=== PATIENT | female | born 1985 | race African-American/Black ===

== ENCOUNTER 2017-02-13 06:15 | Emergency (ER) | payer MEDICAID ==
[~2017-02-13] VITALS: Ht 160 cm; Wt 70.0 kg
[~2017-02-13 06:15] MED LIST: CIPR500T4 PO; DICL75 PO; METR-1 PO; Z.0.BCPILL PO; ZOFR4TAB3 PO
[2017-02-13 06:17] VITALS: BP 115/71; PULSE 69; RESP 16; TEMP 98.4; O2SAT 98
[2017-02-13] MEDS ORDERED: PRED15SO SWISH-SWAL (06:38)
--- NOTE | 2017-02-13 06:45 | PD ---
HPI Chief Complaint: Allergic/Adverse Reaction Time Seen by Provider: 06:41 Travel History International Travel<30 days: No Contact w/Intl Traveler<30days: No Traveled to known affect area: No History of Present Illness HPI 31-year-old black female presents to emergency department complains of tenderness and blistering along the edges of her lips and gum over last day or 2. She states that this had started after switching toothpaste. She denies any recent illness. No fever chills. No difficulty swallowing. She denies any new medications. No glossal edema. Denies any history of HSV PFSH Past Medical History Anemia: Yes Diminished Hearing: No Tetanus Vaccination: < 5 Years ?: Not LMP: 01/23/17 : 2 Para: 1 : 1 Past Surgical History Oral Surgery: Yes (partial uppers) Social History Alcohol Use: No Tobacco Use: No Substance Use: No Allergies-Medications (Allergen,Severity, Reaction): Coded Allergies: No Known Allergies (Verified , 02/13/17) Reported Meds & Prescriptions Reported Meds & Active Scripts Active Prednisolone Liq (w/alcohol 5%) (Prednisolone) 15 Mg/5 Ml Soln 15 Mg SWISH-SWAL TID 5 Days Review of Systems Except as stated in HPI: all other systems reviewed are Neg Physical Exam Narrative GENERAL: Well-developed, well-nourished in no acute distress. Nontoxic appearing. HEAD: Normocephalic, atraumatic. EYES: Pupils equal round and reactive. Extraocular motions intact. No scleral icterus. No injection or drainage. ENT: TMs clear without erythema. The external auditory canals clear. Nose: clear . Posterior pharynx is pink and moist. No tonsillar edema or exudate. Uvula midline. Airway patent. Patient has mild gingival erythema with a few scattered ulcerative lesions to the buccal mucosa NECK: Trachea midline.Supple, nontender, moves head freely. No central bony tenderness or spasm. CARDIOVASCULAR: Regular rate and rhythm without murmurs, gallops, or rubs. RESPIRATORY: Clear to auscultation. Breath sounds equal bilaterally. No wheezes , rales, or rhonchi. GASTROINTESTINAL: Abdomen soft, non-tender, nondistended. No hepato-splenomegaly , or palpable masses. No guarding. EXTREMITIES: No clubbing, cyanosis, or edema. No joint tenderness, effusion, or edema noted. BACK: Nontender without deformity or crepitance. No flank tenderness. Data Data Last Documented VS Vital Signs Date Time Temp Pulse Resp B/P Pulse Ox O2 Delivery O2 Flow Rate FiO2 02/13/17 06:17 98.4 69 16 115/71 98 Room Air MDM Medical Decision Making Medical Screen Exam Complete: Yes Emergency Medical Condition: Yes Medical Record Reviewed: Yes Differential Diagnosis Differential diagnoses: HSV, canker sore, reaction to toothpaste Narrative Course Patient appears to be having a reaction to her new toothpaste. She's been advised to back to her original to . She is given prescription for Orapred prednisone swish and swallow. Diagnosis Primary Impression: reaction to toothpaste Patient Instructions: General Instructions Additional Instructions: Rest. Switch back to your old toothpaste. Oral prednisone Benadryl 50 mg every 6 hours as needed. Follow-up with your doctor in 1 week. Return to ER for new problems. Med/Other Pt SpecificInfo: Prescription(s) given Scripts Prednisolone Liq (w/alcohol 5%) 15 Mg/5 Ml Soln15 Mg SWISH-SWAL TID 5 Days Ref 0 Prov:Kalen Jimenez MD 02/13/17 Disposition: 01 DISCHARGE HOME Condition: Stable Buster Naidu Feb 13, 2017 06:45
== END 2017-02-13 07:15 | disposition home or self-care (01) ==
LOC: NEPD 06:15
DX: T78.40XA Allergy, unspecified, initial encounter (principal); D64.9 Anemia, unspecified
CPT/HCPCS: 99283

== ENCOUNTER 2017-05-12 15:43 | Emergency (ER) | payer MEDICAID ==
[~2017-05-12] VITALS: Ht 160 cm; Wt 70.1 kg
[~2017-05-12 15:43] MED LIST changes: -CIPR500T4 PO; -DICL75 PO; -METR-1 PO; +PRED15SO SWISH-SWAL; -Z.0.BCPILL PO; -ZOFR4TAB3 PO
[2017-05-12 15:57] VITALS: BP 125/77; PULSE 92; RESP 18; TEMP 98.8; O2SAT 99
--- NOTE | 2017-05-12 16:22 | PD ---
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 Patient states when vaginal discharge started one week ago, she went to [facility] where she had a pelvic exam and was given azithromycin and ceftriaxone. Patient states her discharge seemed to improve slightly but a few days later she developed left lower pelvic pain. Pain has been worsening. When she wiped after using the bathroom today, she saw a small piece of white, rubber glove. Patient states she is concerned there are other retained foreign bodies. She last had intercourse a few days ago and used a condom. She is not using any other form of control. Denies itching, fever, chills, nausea, vomiting, abdominal pain, flank pain, dysuria, urgency, frequency, or foul odors. No chronic medical conditions or daily medications. [facility] Past Medical History Anemia: Yes Diminished Hearing: No ?: Not LMP: 04/24/2017 : 2 Para: 1 : 1 Past Surgical History Oral Surgery: Yes (partial uppers) Social History Alcohol Use: No Tobacco Use: No Substance Use: No Allergies-Medications (Allergen,Severity, Reaction): Coded Allergies: No Known Allergies (Verified , 05/12/17) Reported Meds & Prescriptions Reported Meds & Active Scripts Active Doxycycline Hyclate 100 Mg Cap 100 Mg PO BID Diflucan (Fluconazole) 150 Mg Tab 150 Mg PO ONCE Flagyl (Metronidazole) 500 Mg Tab 500 Mg PO Q12HR 7 Days Review of Systems Except as stated in HPI: all other systems reviewed are Neg Physical Exam Narrative GENERAL: Well-nourished, well-developed female in no acute distress. Afebrile. Ambulatory. SKIN: Focused skin assessment warm/dry. HEAD: Normocephalic. EYES: No scleral icterus. No injection or drainage. NECK: Supple, trachea midline. No JVD or lymphadenopathy. CARDIOVASCULAR: Regular rate and rhythm without murmurs, gallops, or rubs. RESPIRATORY: Breath sounds equal bilaterally. No accessory muscle use. GASTROINTESTINAL: Abdomen soft, non-tender, nondistended. No CVA tenderness. GENITOURINARY: Normal external genitalia without lesions or erythema. Vaginal vault without blood but with foul-smelling, thick, cottage cheese-like, white drainage. Cervical os was closed with the same drainage. Mild cervical motion tenderness. Uterus nontender and nonenlarged. Right adnexa nontender without masses. Left adnexa mildly tender to palpation. Data Data Last Documented VS Vital Signs Date Time Temp Pulse Resp B/P (MAP) Pulse Ox O2 Delivery O2 Flow Rate FiO2 05/12/17 15:57 98.8 92 18 125/77 (93) 99 Orders Orders Wet Prep Profile (05/12/17 16:13) Urinalysis - C+S If Indicated (05/12/17 16:13) Ed Urine Pregnancytest Poc (05/12/17 16:13) Labs Laboratory Tests Test 05/12/17 16:25 Urine Collection Type CLEAN CATCH Urine Color YELLOW Urine Turbidity CLEAR Urine pH 7.5 Urine Specific [place] 1.028 Urine Protein NEG mg/dL Urine Glucose (UA) NEG mg/dL Urine Ketones NEG mg/dL Urine Occult Blood NEG Urine Nitrite NEG Urine Bilirubin NEG Urine Leukocyte Esterase NEG Urine Squamous Epithelial Cells 0-5 /hpf Urine Amorphous Sediment MOD Microscopic Urinalysis Comment CULT NOT INDICATED Clue Cells (Wet Prep) PRESENT Vaginal Trichomonas (Wet Prep) NONE SEEN Vaginal Yeast (Wet Prep) NONE SEEN MDM Medical Decision Making Medical Screen Exam Complete: Yes Emergency Medical Condition: Yes Medical Record Reviewed: Yes Differential Diagnosis Bacterial vaginosis, retained foreign body, UTI, pelvic pain Narrative Course 32-year-old female presents to the emergency room for evaluation of left lower pelvic pain and vaginal discharge for the past week. Patient states symptoms started with just discharge and she went to another hospital and was treated with azithromycin and ceftriaxone. Since then she developed worsening left pelvic pain. She wiped today and saw a white glove come out of her vagina. She did have sex with a condom a few days ago but states the condom was black. Physical exam is reassuring. No CVA tenderness. No significant tenderness to palpation. Abdomen soft, nontender. No peritoneal signs. Vaginal vault without blood but with foul-smelling, thick, cottage cheese-like, white drainage. Cervical os was closed with the same drainage. Mild cervical motion tenderness. Uterus nontender and nonenlarged. Right adnexa nontender without masses. Left adnexa mildly tender to palpation. ED urine test is negative. Wet prep is positive for clue cells. UA is unremarkable. Patient will be treated for bacterial vaginosis and yeast infection based on physical exam. Will also be discharged with prescription for doxycycline for possible PID given adnexal tenderness and mild cervical motion tenderness. Told to follow-up with her search consultant or return for worsening symptoms. She understands and agrees to plan. Diagnosis Primary Impression: BV (bacterial vaginosis) Additional Impression: PID (acute pelvic inflammatory disease) Referrals: Agriculture Sales Account Manager Additional Instructions: Rest and drink plenty of fluids. Take Flagyl and doxycycline as directed, until gone. Take Diflucan after you have finished antibiotics. Follow-up with a search consultant. Return to the emergency room for worsening symptoms. Scripts Doxycycline Hyclate (Doxycycline Hyclate) 100 Mg Cap 100 MG PO BID for Infection, #28 CAP 0 Refills Prov: Evaristo Brewer MD 05/12/17 Fluconazole (Diflucan) 150 Mg Tab 150 MG PO ONCE for Infection, #1 TAB 0 Refills Prov: Evaristo Brewer MD 05/12/17 Metronidazole (Flagyl) 500 Mg Tab 500 MG PO Q12HR for Infection for 7 Days, TAB 0 Refills Prov: Evaristo Brewer MD 05/12/17 Disposition: 01 DISCHARGE HOME Condition: Stable Lizet Quintana May 12, 2017 16:21
[2017-05-12 16:31] LABS: BLOOD, URINE NEG (NEG); GLUCOSE,URINE NEG (NEG); KETONE, URINE NEG (NEG); NITRITE,URINE NEG (NEG); PH, URINE 7.5 (5.0-8.5)
[2017-05-12 16:33] LABS: METHOD OF COLLECTION CLEAN CATCH; URINE COLOR YELLOW (YELLW/STRAW)
[2017-05-12 16:36] LABS: COMMENT (UR) CULT NOT INDICATED; CULTURE IF INDICATED CULT NOT INDICATED; SQUAMOUS EPITHELIAL CELL URINE 0-5 /hpf (0-5)
[2017-05-12] MEDS ORDERED: METR-1 PO (16:37)
[2017-05-12] MEDS ORDERED: DIFL150T PO (16:37)
[2017-05-12] MEDS ORDERED: DOXY100C PO (16:37)
== END 2017-05-12 16:52 | disposition home or self-care (01) ==
LOC: PHED 15:43
DX: N76.0 Acute vaginitis (principal); N73.9 Female pelvic inflammatory disease, unspecified; B37.9 Candidiasis, unspecified; Z86.2 Personal history of diseases of the blood and blood-forming organs and certain disorders involving the immune mechanism
CPT/HCPCS: 81001; 84703; 87210; 99284